=== PATIENT | female | born 2000 | race Two or more races ===

== ENCOUNTER 2025-01-10 18:52 | Emergency (ER) | payer SELFPAY ==
[2025-01-10] MEDS ORDERED: IPRATROPIUM BROM 0.5 MG/2.5ML INH SOL NEB ONE (19:15)
[2025-01-10] MEDS ORDERED: predniSONE 20 MG TAB PO ONE (19:15)
[2025-01-10] MEDS ORDERED: ALBUTEROL SULF 2.5 MG/0.5ML(0.5%) NEB SOLN NEB ONE (19:15)
== END 2025-01-10 21:05 | disposition left against medical advice (07) ==
LOC: ER 18:52
DX: J45.909 Unspecified asthma, uncomplicated (principal); Z53.21 Procedure and treatment not carried out due to patient leaving prior to being seen by health care provider